=== PATIENT | female | born 1940 | race Caucasian/White ===

== ENCOUNTER 2017-01-21 12:43 | Emergency (ER) | payer SELFPAY ==
[~2017-01-21] VITALS: Wt 77.6 kg
[2017-01-21 13:52] LABS: ADD SCAN DIFF NO
[2017-01-21 13:56] LABS: BASOPHIL # 0.1 10^3/ul (0.0-0.1); BASOPHILS % 0.7 % (0.0-2.0); EOSINOPHILS # 0.2 10^3/ul (0.0-0.5); HEMATOCRIT 41.9 % (37.0-47.0); LYMPHOCYTES # 2.1 10^3/ul (0.8-2.9); LYMPHOCYTES % 29.5 % (15.0-51.0); MEAN CORPUSCULAR HEMOGLOBIN 27.5 pg (29.0-33.0); MEAN CORPUSCULAR HGB CONC 33.4 g/dl (32.0-37.0); MEAN CORPUSCULAR VOLUME 82.3 fl (82.0-101.0); MEAN PLATELET VOLUME 9.4 fl (7.4-10.4); MONOCYTE # 0.6 10^3/ul (0.3-0.9); MONOCYTES % 8.2 % (0.0-11.0); NEUTROPHIL # 4.1 10^3/ul (1.6-7.5); NEUTROPHILS % 58.3 % (39.0-77.0); PLATELET COUNT 241 10^3/UL (140-415); RED BLOOD COUNT 5.09 10^6/ul (4.20-5.40); RED CELL DISTRIBUTION WIDTH 14.2 % (11.5-14.5)
[2017-01-21 14:04] LABS: ADD UMIC YES; UR ASCORBIC ACID NEGATIVE (NEGATIVE); UR BACTERIA FEW /HPF (NONE SEEN); UR BILIRUBIN (Dip) NEGATIVE (NEGATIVE); UR BLOOD (Dip) NEGATIVE (NEGATIVE); UR CLARITY CLEAR (CLEAR); UR COLOR YELLOW (YELLOW); UR GLUCOSE (Dip) NEGATIVE (NEGATIVE); UR KETONES (Dip) NEGATIVE (NEGATIVE); UR LEUKOCYTE ESTERASE (Dip) TRACE Leu/ul (NEGATIVE); UR MUCUS FEW /HPF (NONE SEEN); UR NITRITE (Dip) NEGATIVE (NEGATIVE); UR RBC 2 /HPF (0-5); UR SPECIFIC GRAVITY (Dip) 1.016 (1.003-1.030); UR SQUAMOUS EPITHELIAL CELL FEW /HPF (FEW); UR TOTAL PROTEIN (Dip) NEGATIVE (NEGATIVE); UR UROBILINOGEN (Dip) NEGATIVE (NEGATIVE)
[2017-01-21 14:15] LABS: CALCIUM 9.6 mg/dl (8.4-10.2); CREATININE 0.69 mg/dl (0.44-1.00); POTASSIUM 3.9 mmol/L (3.5-5.1)
--- NOTE | 2017-01-21 14:18 | RADRPT ---
PROCEDURE: CT brain without contrast CLINICAL INDICATION: Left sided headache. Dizziness TECHNIQUE: CT of the brain without contrast performed on a multidetector CT scanner, with multiplan ar reformats. One or more of the following dose reduction techniques were used: Automated exposure control, adjustment in mA and / or kV according to patient size, use of iterative reconstructive anna hnique. CTDIvol = 44 mGy; DLP = 630 mGy-cm. COMPARISON: None available FINDINGS: No acute intracranial hemorrhage is identified. No extra-axial fluid collection is seen. There is no mass effect. No midline shift is identified. The ventricles and sulci are mildly enlarged compatible with volume loss. There are minimal areas of hypodensity in the periventricular - deep white matter which are nonspeci fic but suggestive of chronic small vessel ischemic changes. Forte-white differentiation is preserve d. Atherosclerotic calcifications of the intracranial internal carotid arteries are noted. Osseous structures are unremarkable. Mastoid air cells and imaged paranasal sinuses grossly clear. IMPRESSION: 1. No evidence of acute intracranial pathology. 2. Mild volume loss, with minimal chronic small vessel ischemic changes. RPTAT: VV .Yaron Price MD, MD Date Time Electronically viewed and signed by .Yaron Price MD, MD on 01/21/2017 14:18 .O/
[2017-01-21] MEDS ORDERED: CETI10CA PO (14:59)
[2017-01-21] MEDS ORDERED: AMO500 PO (14:59)
[2017-01-21 15:18] VITALS: BP 143/87; PULSE 81; RESP 17; TEMP 98.7
--- NOTE | 2017-01-21 15:30 | ERD ---
ER Documentation Chief Complaint Date/Time DATE: 01/21/17 TIME: 15:26 Chief Complaint LEFT EAR PAIN FOR SEVERAL DAYS HPI 76-year-old female with a history of hypercholesterolemia, hypertension comes emergency room left-sided ear pain for the past 2-3 weeks and intermittent dizziness. Patient reports that his vertiginous symptoms with room is spinning and she states that the pain is worse when she leans over. Patient states that her primary care doctor saw her about 1-2 weeks ago and told her that it was benign, she received a prescription for dizziness, however she is not sure what the name was called. She states that the medication made her more dizzy. Pain is inside the ear, achy, nonradiating, not getting better with Tylenol at home. She denies chest pain, shortness of breath, syncope. ROS All systems reviewed and are negative except as per history of present illness. Medications Home Meds Active Scripts Cetirizine Hcl* (Zyrtec*) 10 Mg Capsule, 10 MG PO DAILY, #10 TAB.CHEW Prov:YELENA AC PA-C 01/21/17 Amoxicillin* (Amoxicillin*) 500 Mg Cap, 500 MG PO TID for 10 Days, CAP Prov:YELENA AC PA-C 01/21/17 Allergies Allergies: Coded Allergies: No Known Allergy (Unverified , 01/21/17) PMhx/Soc Medical and Surgical Hx: Unable to obtain Hx Alcohol Use: No Hx Substance Use: No Hx Tobacco Use: No Smoking Status: Never smoker Physical Exam Vitals Vital Signs Date Time Temp Pulse Resp B/P Pulse Ox O2 Delivery O2 Flow Rate FiO2 01/21/17 15:18 98.7 81 17 143/87 100 Room Air 01/21/17 12:51 99.2 87 18 165/91 98 Physical Exam General: Well-developed, well-nourished. The patient appears in no acute distress. HEENT: Head is normocephalic, atraumatic. No scleral icterus. Pupils are equal , round, and reactive. Oral mucous membranes are moist. TM is erythematous on the left side, there is slight bruise bulging, no perforation, otorrhea or discharge, mastoids are nontender, right ear is unremarkable Neck: Supple. Nontender. Lungs: Clear to auscultation. Normal air movement. Heart: Regular rate and rhythm. S1 and S2 are normal. No murmurs, gallops, or rubs. Abdomen: Soft, nontender, nondistended. Bowel sounds are normoactive. Extremities: No clubbing or cyanosis. Normal pulses. Moving extremities x 4. No weakness. Neurologic: Alert and oriented 3. No focal deficits. Cranial nerves II to XII grossly intact, speech and gait normal. Skin: Normal turgor. No rash or lesions. Result Diagram: 01/21/17 1345 01/21/17 1345 Results 24 hrs Laboratory Tests Test 01/21/17 13:45 White Blood Count 7.010^3/ul Red Blood Count 5.0910^6/ul Hemoglobin 14.0g/dl Hematocrit 41.9% Mean Corpuscular Volume 82.3fl Mean Corpuscular Hemoglobin 27.5pg Mean Corpuscular Hemoglobin Concent 33.4g/dl Red Cell Distribution Width 14.2% Platelet Count 37437^3/UL Mean Platelet Volume 9.4fl Neutrophils % 58.3% Lymphocytes % 29.5% Monocytes % 8.2% Eosinophils % 3.0% Basophils % 0.7% Nucleated Red Blood Cells % 0.0/100WBC Neutrophils # 4.110^3/ul Lymphocytes # 2.110^3/ul Monocytes # 0.610^3/ul Eosinophils # 0.210^3/ul Basophils # 0.110^3/ul Nucleated Red Blood Cells # 0.010^3/ul Urine Color YELLOW Urine Clarity CLEAR Urine pH 6.0 Urine Specific [place] 1.016 Urine Ketones NEGATIVEmg/dL Urine Nitrite NEGATIVEmg/dL Urine Bilirubin NEGATIVEmg/dL Urine Urobilinogen NEGATIVEmg/dL Urine Leukocyte Esterase TRACELeu/ul Urine Microscopic RBC 2/HPF Urine Microscopic WBC 1/HPF Urine Squamous Epithelial Cells FEW/HPF Urine Bacteria FEW/HPF Urine Mucus FEW/HPF Urine Hemoglobin NEGATIVEmg/dL Urine Glucose NEGATIVEmg/dL Urine Total Protein NEGATIVEmg/dl Sodium Level 143mmol/L Potassium Level 3.9mmol/L Chloride Level 106mmol/L Carbon Dioxide Level 28mmol/L Anion Gap 13 Blood Urea Nitrogen 9mg/dl Creatinine 0.69mg/dl Glucose Level 93mg/dl Calcium Level 9.6mg/dl 12-lead EKG(interpreted by supervising physician): Dr. Cherry Rate/Rhythm: Normal Sinus Rhythm, rate of 79 QRS, ST, T-waves: No changes consistent w/ acute ischemia, no intervals, no dysrhythmias, no ectopy, nonspecific ST changes Impression: No evidence of ischemia or arrhythmia Procedures/MDM 68-year-old female comes in with left otitis media, with associated dizziness. CT scan of the head was done due to patient's history of headache associated with ear pain, and it was unremarkable for intracranial hemorrhage, skull fracture or mass. All labs are normal, dizziness is associated with her ear pain and is positional. It does sound vertiginous, suspicion for a coronary process is low. Labs at this time showed no anemia, no leukocytosis, electrolyte abnormalities, and urine was negative for infection. At this time patient is neurologically intact, EKG is unremarkable, and believe that the patient's symptoms appear to be related to her ear. She does have erythema and which should be treated for otitis media, as well as Zyrtec. She has been asked to discontinue the medication she was previously taking. Patient's blood pressure was elevated (>120/80) but appears stable without evidence of hypertension emergency or urgency. The patient was counseled about the risks of hypertension and urged to pursue outpatient monitoring and therapy within a week with their primary care physician. Departure Diagnosis: Primary Impression: Left ear pain Condition: Good Patient Instructions: Otitis Media, Abkim Tx (Adult) YELENA AC PA-C Jan 21, 2017 15:30
== END 2017-01-21 15:22 | disposition home or self-care (01) ==
LOC: FTE 12:43
DX: H92.02 Otalgia, left ear (principal); R42 Dizziness and giddiness
CPT/HCPCS: 70450; 80048; 81001; 85025; 93005